=== PATIENT | male | born 1965 | race Caucasian/White ===

== ENCOUNTER 2017-06-27 19:07 | Emergency (ER) | payer MEDICAID ==
--- NOTE | 2017-06-27 19:56 | C.PDOC ---
History Of Present Illness 52 y/o male presents to emergency department with complaints of nausea, not feeling well, and generalized body aches. Otherwise, patient denies fever, chills, chest pain, palpitations, cough, shortness of breath, vomiting, abdominal pain, dysuria, hematuria, headache, and dizziness. Chief Complaint (Nursing): GI Problem History Per: Patient History/Exam Limitations: no limitations Onset/Duration Of Symptoms: Days Current Symptoms Are (Timing): Still Present Recent travel outside of the [place]: No Past Medical History Reviewed: Historical Data, Nursing Documentation, Vital Signs Vital Signs: Last Vital Signs Temp 100 F H 06/28/17 02:45 Pulse 103 H 06/28/17 02:45 Resp 20 06/28/17 02:45 BP 119/67 06/28/17 02:45 Pulse Ox 95 06/28/17 02:45 - Medical History PMH: Bipolar Disorder, Depression Family History: States: Unknown Family Hx - Social History Hx Alcohol Use: No Hx Substance Use: No (Denies) - Immunization History Hx Tetanus Toxoid Vaccination: No Hx Influenza Vaccination: Yes (3 weeks ago as per pt) Hx Pneumococcal Vaccination: No Review Of Systems Except As Marked, All Systems Reviewed And Found Negative. Constitutional: Positive for: Malaise. Negative for: Fever, Chills Cardiovascular: Negative for: Chest Pain Respiratory: Negative for: Cough, Shortness of Breath, Wheezing Gastrointestinal: Positive for: Nausea. Negative for: Vomiting, Abdominal Pain Skin: Negative for: Rash Neurological: Negative for: Headache, Dizziness Physical Exam - Physical Exam Appears: Non-toxic, No Acute Distress Skin: Normal Color, Warm, Dry Head: Atraumatic, Normacephalic Oral Mucosa: Dry Throat: Normal, No Erythema, No Exudate Neck: Supple Chest: Symmetrical Cardiovascular: Rhythm Regular Respiratory: Normal Breath Sounds, No Rales, No Rhonchi, No Wheezing Gastrointestinal/Abdominal: Soft, No Tenderness Back: Normal Inspection Extremity: Normal ROM, Capillary Refill Neurological/Psych: Oriented x3, Normal Speech, Normal Cognition ED Course And Treatment - Laboratory Results Result Diagrams: 06/27/17 20:00 06/28/17 01:19 O2 Sat by Pulse Oximetry: 98 (RA) Pulse Ox Interpretation: Normal - Radiology CXR: Interpreted by Me, Viewed By Me CXR Interpretation: Yes: No Acute Disease, Other (normal chest film). No: Infiltrates Progress Note: Zofran, IVFs ordered. ABG, EKG, bloodwork, ordered and reviewed. Disposition Counseled Patient/Family Regarding: Diagnosis - Disposition Referrals: [facility] [Outside] Disposition: HOME/ ROUTINE Disposition Time: 02:27 Condition: STABLE Prescriptions: Ibuprofen [Motrin] 1 tab PO TID PRN #30 tab PRN Reason: Pain Ondansetron ODT [Zofran ODT] 1 odt PO BID PRN #6 odt PRN Reason: Nausea/Vomiting Potassium Chloride [K-Dur 20] 20 meq PO DAILY #10 tab Instructions: Fever in Adults (ED), Hypokalemia (DC), Diabetic Hyperglycemia ( ED) Forms: [employer] (German) - POA Present On Arrival: None - Clinical Impression Clinical Impression: Febrile illness, Viral syndrome, Hypokalemia, Diabetes mellitus with hyperglycemia - Scribe Statement The provider has reviewed the documentation as recorded by the Scribjaci Trivedi All medical record entries made by the Sachinibjaci were at my direction and personally dictated by me. I have reviewed the chart and agree that the record accurately reflects my personal performance of the history, physical exam, medical decision making, and the department course for this patient. I have also personally directed, reviewed, and agree with the discharge instructions and disposition.
[2017-06-27] MEDS: Sodium Chloride 0.9% 1,000 ML IV ONE ×2 (20:00→20:30)
[2017-06-27 20:10] LABS: BASO % 0.2 % (0.0-2.0); EOS % 0.1 % (0.0-4.0); HEMATOCRIT 38.8 % (35.0-51.0); LYMPH # 1.7 K/uL (1.0-4.3); LYMPH % 18.2 % (20.0-40.0); MEAN CELL VOLUME 86.6 fL (80.0-94.0); MEAN CORPUSCULAR HEMOGLOBIN 30.9 pg (27.0-31.0); MEAN CORPUSCULAR HGB CONC 35.6 g/dL (33.0-37.0); MEAN PLATELET VOLUME 7.8 fL (7.2-11.7); MONO # 0.6 K/uL (0.0-0.8); MONO % 6.5 % (0.0-10.0); NRBC % 0.1 % (0.0-2.0); RED CELL DISTRIBUTION WIDTH 14.5 % (11.5-14.5); WHITE BLOOD COUNT 9.1 K/uL (4.8-10.8)
[2017-06-27 20:14] LABS: CHLORIDE 89 mmol/L (98-107); POTASSIUM 3.7 mmol/L (3.6-5.2); SODIUM 130 mmol/L (132-148)
[2017-06-27] MEDS ORDERED: Sodium Chloride 0.9% 1,000 ML IV ONE (20:15)
[2017-06-27 20:16] LABS: AST/SGOT 21 U/L (17-59); BILIRUBIN,TOTAL 2.7 mg/dL (0.2-1.3); CARBON DIOXIDE 20 mmol/L (22-30); GFR AFRICAN-AMERICAN > 60
[2017-06-27 20:17] LABS: ALKALINE PHOSPHATASE 111 U/L (38-126); ALT/SGPT 23 U/L (21-72); BLOOD UREA NITROGEN 13 mg/dL (9-20); CALCIUM 8.8 mg/dl (8.6-10.4); GLUCOSE,RANDOM 325 mg/dL (75-110); TOTAL PROTEIN 8.7 g/dL (6.3-8.3)
[2017-06-27 20:27] LABS: ARTERIAL BLOOD HGB O2 SAT 91.9 % (95.0-98.0); CARBOXYHEMOGLOBIN 2.6 % (0.5-1.5); DRAW SITE RRA; HHB 3.9 % (0.0-5.0); METHEMOGLOBIN 1.6 % (0.0-3.0)
[2017-06-27] MEDS ORDERED: Sodium Chloride 0.9% 1,000 ML ONE (21:49)
[2017-06-27] MEDS ORDERED: (Novolin R) Insulin Human Regular 100 units/ml vial SC ONE (22:10)
[2017-06-27 22:18] LABS: RBC URINE < 1 /hpf (0-3); URINE BACTERIA RARE (<OCC); URINE BILIRUBIN NEGATIVE (NEGATIVE); URINE COLOR Yellow (YELLOW); URINE GLUCOSE (UA) 3+ mg/dL (Normal); URINE KETONE 2+ mg/dL (NEGATIVE); URINE LEUKOCYTE ESTERASE NEG Leu/uL (Negative); URINE PROTEIN 1+ mg/dL (NEGATIVE); URINE UROBILINOGEN NORMAL mg/dL (0.2-1.0); WBC URINE < 1 /hpf (0-5)
[2017-06-27 22:19] LABS: URINE BLOOD TRACE (NEGATIVE)
[2017-06-27] MEDS ORDERED: (Novolin R) Insulin Human Regular 100 units/ml vial ONE (22:19)
[2017-06-28] MEDS ORDERED: Sodium Chloride 0.9% 1,000 ML IV ONE (00:57)
[2017-06-28 01:30] LABS: CHLORIDE 97 mmol/L (98-107); SODIUM 129 mmol/L (132-148)
[2017-06-28 01:31] LABS: POTASSIUM 3.2 mmol/L (3.6-5.2)
[2017-06-28 01:33] LABS: GFR AFRICAN-AMERICAN > 60
[2017-06-28 01:34] LABS: BLOOD UREA NITROGEN 11 mg/dL (9-20); CALCIUM 7.4 mg/dl (8.6-10.4); CARBON DIOXIDE 22 mmol/L (22-30); GLUCOSE,RANDOM 168 mg/dL (75-110)
[2017-06-28] MEDS ORDERED: Potassium Chloride 20 mEq ER Tab PO STA (02:22)
[2017-06-28] MEDS ORDERED: Potassium Chloride 20 mEq ER Tab PO ONE (02:29)
[2017-06-28 02:46] VITALS: RESP 20
[2017-06-28 03:07] VITALS: O2SAT 98
[2017-06-28 04:49] VITALS: BP 135/76; PULSE 101; TEMP 99.5
--- NOTE | 2017-06-28 08:24 | RAD ---
HISTORY: fever/ achiness COMPARISON: No prior. TECHNIQUE: Chest PA and lateral FINDINGS: LUNGS: No acute pulmonary disease appreciated. PLEURA: No significant pleural effusion identified. No pneumothorax apparent. CARDIOVASCULAR: Normal. OSSEOUS STRUCTURES: No significant abnormalities. VISUALIZED UPPER ABDOMEN: Normal. OTHER FINDINGS: None. IMPRESSION: No acute cardiopulmonary disease appreciated.
--- NOTE | 2017-07-02 06:45 | CARD ---
APPROVED REPORT EKG Measurement Heart [id number] <Conclusion> Sinus tachycardia Otherwise normal ECG
== END 2017-06-28 04:48 | disposition home or self-care (01) ==
LOC: C.ER 19:07
DX: B34.9 Viral infection, unspecified (principal); R50.9 Fever, unspecified; E87.6 Hypokalemia; E11.65 Type 2 diabetes mellitus with hyperglycemia
CPT/HCPCS: 36415; 36600; 71020; 80048; 80053; 80324; 80345; 80346; 80349; 80353; 80358; 80361; 81001; 82009; 82803; 82948; 83690; 83992; 85025; 87804; 93005; 96360; 96361; 96374; 99285; J2405; J7040